=== PATIENT | female | born 1985 | race Two or more races ===

== ENCOUNTER 2022-02-23 07:14 | Emergency (ER) | payer OTHER, SELFPAY ==
[2022-02-23 07:17] VITALS: BP 113/68; PULSE 83; RESP 16; TEMP 36.3; O2SAT 99; BMI 27.4
[2022-02-23] MEDS: cefTRIAXone sodium 500 MG, Lidocaine HCl 1 % MPF 1 ML IM (09:52)
--- NOTE | 2022-02-23 09:52 | ED.FEMALEGU ---
HPI - Female Genitourinary General Chief complaint: Urogenital-Female Stated complaint: personal issue Time Seen by Provider: 02/23/22 08:05 Source: patient Mode of arrival: ambulatory Limitations: no limitations History of Present Illness HPI Narrative: 36-year-old female presents for which she thinks is a condom stuck in vagina. patient states that 3 days ago she had sex multiple times, and found four condoms in the room. She thought there was a 5th condom, but could not find it in the room. Patient states her sex partner has a large penis, she does not remember when he withdrew if the condom was on his penis, but they had had a lot to drink. States she has had a bad vaginal odor since that. Patient has not had any pelvic pain. Last menstrual period was 1 month ago, she is due for her. . Patient has had no dysuria, no hematuria, no urinary frequency. Patient does state there is a funky smell and she has had some vaginal discharge. No vaginal itching. She does not want a test, she does not want STD testing. However she agrees to being treated for STDs with ceftriaxone and doxycycline. Related Data Previous Rx's Medication Instructions Recorded doxycycline hyclate 100 mg tablet 100 mg PO BID 7 days #14 tabs 02/23/22 metronidazole 500 mg tablet 500 mg PO BID 7 days #14 tabs 02/23/22 Allergies Allergy/AdvReac Type Severity Reaction Status Date / Time tree nut Allergy Difficulty Verified 02/23/22 07:20 Breathing Review of Systems Constitutional: Constitutional: Denies body ache(s), Denies chills, Denies fatigue, Denies fever(s), Denies malaise and Denies weakness Eyes: Eyes: Denies diplopia Cardiovascular: Cardiovascular: Denies chest pain, Denies syncope, Denies leg edema, Denies lightheadedness, Denies Loss of Consciousness, Denies palpitations and Denies dyspnea Respiratory: Respiratory: Denies chest congestion, Denies cough and Denies dyspnea Gastrointestinal: Gastrointestinal: Denies abdominal pain, Denies hematochezia, Denies constipation, Denies diarrhea, Denies nausea and Denies vomiting Genitourinary: Genitourinary: Denies abnormal vaginal bleeding, Denies hematuria, Denies pelvic pain, Denies flank pain, Denies urinary urgency, Reports vaginal discharge, Reports vaginal odor and Denies vaginal pruritus Comments: Concern for condom stuck in vagina Musculoskeletal: Musculoskeletal: Reports no additional musculoskeletal complaints Neurologic: Denies confusion, Denies syncope and Denies weakness Psychiatric: Psychiatric: Denies anxiety, Denies confusion and Denies depression Endocrine: Endocrine: Denies fatigue and Denies palpitations PMFSH Social History Social History Advance Directives: No Advance Directives Information Provided: No Physical Exam Vital Signs: Vital Signs: Last Vital Signs Temp 97.3 F 02/23/22 07:17 Pulse 83 02/23/22 07:17 Resp 16 02/23/22 07:17 BP 113/68 02/23/22 07:17 Pulse Ox 99 02/23/22 07:17 O2 Del Method 02/23/22 07:17 BMI result Body Mass Index 27.4 Const: General: No confusion Nutritional Appearance: well nourished Orientation/consciousness: No confusion Limitations: no limitations Eyes: Conjunctivae: conjunctivae normal Pupils: Equal, round and reactive pupils present EOM: EOMs intact bilaterally Neck: Neck: Yes full ROM, Yes no lymphadenopathy and Yes supple Resp: Effort & Inspection: normal respiratory effort and able to speak in complete sentences Auscultation: clear to auscultation bilaterally, no crackles, no rales, no rhonchi and no wheezes Cardio: Rate: regular rate Rhythm: regular rhythm Heart sounds: S1 normal heart sound present and S2 normal heart sound present GI: Inspection: Yes normal to inspection Palpation (GI): Soft to palpation, nontender, no guarding and not rigid Percussion: Yes normal to percussion Auscultation: normal bowel sounds : Other: on speculum exam there was a condom pushed up against patient's cervix, I was able to remove the condom with ring forceps General: Yes no CVA tenderness External Female Exam: normal external appearance, normal appearance of the urethra and No urethral discharge Speculum Exam - Vagina: normal appearance of the vagina, normal palpation, abnormal vaginal discharge malodorous, not erythematous, foreign body, no swelling and nontender Speculum Exam - Cervix: normal appearance of the cervix Bimanual exam- vagina & uterus: normal palpation OB/external & speculum: foreign body Back/Spine/Pelvis: Back: no CVA tenderness Skin: General skin exam: no rashes or lesions noted Neuro: General: No confusion Cranial nerves: Yes Equal, round and reactive pupils present Extrem: General: Yes normal to inspection and Yes full ROM Psych: Appearance: grossly normal Affect: normal affect Attitude: cooperative Thought process: Normal thought process present Course Course Course Narrative: 36-year-old female presents for foul vaginal discharge and concern for condom stuck in her vagina on exam, patient has stable vitals, speculum exam revealed condom pushed up against cervix, I was able to remove this with ring forceps. Strong vaginal odor after condom extraction patient refused STD testing but was amenable to taking antibiotics to treat gonorrhea and chlamydia. We tested for bacterial vaginosis, labs not back before patient left. Patient given ceftriaxone here, prescription for doxycycline and prescription for metronidazole for presumed bacterial vaginosis. Counseled patient to call tomorrow to see if bacterial vaginosis lab returned positive counseled patient to return to emergency room if she had pelvic pain, fevers, abdominal pain, nausea vomiting, or any other new or concerning symptoms Discharge Plan Discharge Clinical Impression: Possible exposure to STD, Problem with condom Patient Disposition: Home, Self-Care Instructions: Sexually Transmitted Diseases (ED), Safe Sex Practices (ED) Additional Instructions: please pharmacy picking technician the 2 medications I prescribed your pharmacy. The doxycycline is for Chlamydia, the metronidazole as for possible bacterial vaginosis. Please call the hospital tomorrow afternoon to confirm if you have bacterial vaginosis. If you do not you may stop the metronidazole. please return to the emergency room if you have fevers, pelvic pain, worsening vaginal discharge, or any other new or concerning symptoms Prescriptions: New doxycycline hyclate 100 mg tablet 100 mg PO BID 7 Days Qty: 14 0RF metronidazole 500 mg tablet 500 mg PO BID 7 Days Qty: 14 0RF Interventions: ED Discharge Assessment Last Done: 02/23/22 10:00 Discharge Date/Time: 02/23/22 10:01
[2022-02-23 13:45] LABS: BV Int Neg Control Negative (Negative); BV Int Pos Control Positive (Positive)
== END 2022-02-23 10:01 | disposition home or self-care (01) ==
PROVIDERS: Physician Assistant; Emergency Provider Emergency Medicine Emergency Medical Services
DX: Z20.2 Contact with and (suspected) exposure to infections with a predominantly sexual mode of transmission (principal); N76.0 Acute vaginitis; T19.2XXA Foreign body in vulva and vagina, initial encounter; X58.XXXA Exposure to other specified factors, initial encounter; Y93.9 Activity, unspecified; Y92.9 Unspecified place or not applicable; Y99.9 Unspecified external cause status
CPT/HCPCS: 87480; 87510; 87660; 96372; 99283; 99284; J0696